=== PATIENT | female | born 1985 | race Caucasian/White ===

== ENCOUNTER 2017-01-12 09:09 | Emergency (ER) | payer OTHER ==
[~2017-01-12] VITALS: Ht 160 cm; Wt 80.0 kg
[~2017-01-12 09:09] MED LIST: IBUP-232 PO; PROZ20CA11 PO; Z.0.BCPILL PO
[2017-01-12 09:11] VITALS: BP 143/80; PULSE 98; RESP 20; TEMP 97.8; O2SAT 99
[2017-01-12] MEDS ORDERED: PROZ20CA11 PO (09:16)
[2017-01-12 09:22] VITALS: BP 135/87; PULSE 85; RESP 16; O2SAT 99
[2017-01-12] MEDS ORDERED: PREN1TAB63 PO (09:25)
[2017-01-12] MEDS ORDERED: MORPHINE SULFATE 4 MG/ML INJ IV PUSH ONE (10:00)
[2017-01-12] MEDS ORDERED: ONDANSETRON HCL 4 MG/2 ML VIAL IV PUSH ONE (10:00)
[2017-01-12] MEDS ORDERED: SODIUM CHLOR 0.9% 1000 ML INJ 1,000 ML IV ONE (10:00)
--- NOTE | 2017-01-12 10:30 | PD ---
HPI Chief Complaint: GI Complaint Time Seen by Provider: 09:47 Travel History International Travel<30 days: No Contact w/Intl Traveler<30days: No Traveled to known affect area: No History of Present Illness HPI This is a 31-year-old female who is 14 weeks who presents the emergency department with 1 day of vomiting and diarrhea. She says she woke up this morning and she started to have forceful vomiting, having vomited 7 or 8 times associated with loose stools. She says she had about 4 episodes of diarrhea. She also reports severe abdominal cramping, all over her abdomen, feeling like contractions, with no associated fever or chills. She denies any vaginal bleeding or vaginal discharge. She associated Palestinian muffin this morning and it was the same pack of Palestinian muffin she ate from yesterday. She has had a confirmatory ultrasound and her . PFSH Past Medical History Bipolar Disorder: Yes Anxiety: Yes Depression: Yes Diminished Hearing: No Psychiatric: Yes (PTSD) Immunizations Current: Yes Influenza Vaccination: No ?: LMP: SEPTEMBER 2016 : 1 Para: 1 Past Surgical History Tonsillectomy: Yes (ADENOIDS AND UVULA) Social History Alcohol Use: Yes (SOC) Tobacco Use: No (QUIT) Substance Use: No Allergies-Medications (Allergen,Severity, Reaction): Coded Allergies: *MDRO Multi-Drug Resistant Organism (Unverified Adverse Reaction, Unknown , 01/12/17) MRSA (lip wound) - 06/2014 Reported Meds & Prescriptions Reported Meds & Active Scripts Active Reported Vitamins 0.8 mg ( Multivit-Min W/Fe-FA) 1 Tab Tab 1 Tab PO DAILY Prozac (Fluoxetine HCl) 20 Mg Cap 20 Mg PO DAILY Review of Systems Except as stated in HPI: all other systems reviewed are Neg Physical Exam Narrative GENERAL:Well appearing, no acute distress SKIN: Focused skin assessment warm and dry. HEAD: Atraumatic. Normocephalic. EYES: Pupils equal and round. No injection or drainage. ENT: Moist mucous membranes NECK: Trachea midline. CARDIOVASCULAR: Regular rate and rhythm. No murmur appreciated. RESPIRATORY: Clear to auscultation. Breath sounds equal bilaterally. GASTROINTESTINAL: Abdomen soft, diffusely mildly tender to palpation. MUSCULOSKELETAL: No obvious deformities. NEUROLOGICAL: Awake and alert. No obvious cranial nerve deficits. Moving all extremities. PSYCHIATRIC: Hyperventilating, anxious and tearful Data Data Last Documented VS Vital Signs Date Time Temp Pulse Resp B/P Pulse Ox O2 Delivery O2 Flow Rate FiO2 01/12/17 10:49 74 16 126/75 100 Room Air 01/12/17 09:11 97.8 Orders Ed Poc Ultrasound (01/12/17 ) Complete Blood Count With Diff (01/12/17 09:53) Comprehensive Metabolic Panel (01/12/17 09:53) ^ Insert Iv (01/12/17 09:53) Sodium Chlor 0.9% 1000 Ml Inj (Ns 1000 M (01/12/17 10:00) Morphine Inj (Morphine Inj) (01/12/17 10:00) Ondansetron Inj (Zofran Inj) (01/12/17 10:00) Labs Laboratory Tests Test 01/12/17 10:20 White Blood Count 9.9 TH/MM3 Red Blood Count 4.25 MIL/MM3 Hemoglobin 13.4 GM/DL Hematocrit 38.7 % Mean Corpuscular Volume 90.9 FL Mean Corpuscular Hemoglobin 31.5 PG Mean Corpuscular Hemoglobin 34.7 % Concent Red Cell Distribution Width 12.8 % Platelet Count 282 TH/MM3 Mean Platelet Volume 7.8 FL Neutrophils (%) (Auto) 78.9 % Lymphocytes (%) (Auto) 15.8 % Monocytes (%) (Auto) 4.6 % Eosinophils (%) (Auto) 0.5 % Basophils (%) (Auto) 0.2 % Neutrophils # (Auto) 7.8 TH/MM3 Lymphocytes # (Auto) 1.6 TH/MM3 Monocytes # (Auto) 0.5 TH/MM3 Eosinophils # (Auto) 0.0 TH/MM3 Basophils # (Auto) 0.0 TH/MM3 CBC Comment DIFF FINAL Differential Comment Sodium Level 137 MEQ/L Potassium Level 3.7 MEQ/L Chloride Level 104 MEQ/L Carbon Dioxide Level 21.5 MEQ/L Anion Gap 12 MEQ/L Blood Urea Nitrogen 6 MG/DL Creatinine 0.51 MG/DL Estimat Glomerular Filtration 143 ML/MIN Rate Random Glucose 87 MG/DL Calcium Level 9.5 MG/DL Total Bilirubin 0.3 MG/DL Aspartate Amino Transf 15 U/L (AST/SGOT) Alanine Aminotransferase 25 U/L (ALT/SGPT) Alkaline Phosphatase 61 U/L Total Protein 7.6 GM/DL Albumin 3.7 GM/DL MDM Medical Decision Making Medical Screen Exam Complete: Yes Emergency Medical Condition: Yes Interpretation(s) Afebrile, tachycardic, hypertensive No leukocytosis Electrolytes are reassuring Differential Diagnosis Gastroenteritis, threatened miscarriage, appendicitis, colitis Narrative Course This is a 31-year-old female who presents the emergency department vomiting, diarrhea and abdominal pain in the setting of early . She appears to be very anxious as well. An IV was established and labs were obtained which were reassuring. A [id number] ultrasound was performed which demonstrates an active fetus. Patient feels much better after IV fluids, Zofran and pain control. She'll be discharged home and I suspect she has food poisoning. Procedures Procedure Narrative poc us: active fetus, difficult to capture heart rate due to mobility Diagnosis Primary Impression: Gastroenteritis Patient Instructions: General Instructions Additional Instructions: If you develop lightheadedness, dizziness, persistent vomiting, inability to eat , or severe abdominal pain return to the emergency department. Followup with your primary care physician in 2-3 days if your symptoms have not resolved. Wash your hands aggressively after using the restroom as to not spread your illness to others. Do not return to work until your symptoms have resolved. Take Zofran as needed for nausea. Med/Other Pt SpecificInfo: Prescription(s) given Scripts Ondansetron Odt (Zofran Odt)4 Mg Tab4 Mg SL Q6HR PRN (Nausea/Vomiting) #6 TAB Prov:Sophia Nolasco MD 01/12/17 Disposition: 01 DISCHARGE HOME Condition: Stable Sophia Nolasco MD Jan 12, 2017 10:30
[2017-01-12 10:41] LABS: AUTOMATED NEUTROPHIL # 7.8 TH/MM3 (1.8-7.7); BASOPHIL % 0.2 % (0.0-2.0); EOSINOPHIL % 0.5 % (0.0-4.0); HEMATOCRIT 38.7 % (35.0-46.0); HEMO FLAGS DIFF FINAL; LYMPH % 15.8 % (9.0-44.0); LYMPHOCYTE # 1.6 TH/MM3 (1.0-4.8); MEAN CELL VOLUME 90.9 FL (80.0-100.0); MEAN CORPUSCULAR HEMOGLOBIN 31.5 PG (27.0-34.0); MEAN CORPUSCULAR HGB CONC 34.7 % (32.0-36.0); MONO % 4.6 % (0.0-8.0); NEUT % 78.9 % (16.0-70.0); PLATELET COUNT 282 TH/MM3 (150-450); RED BLOOD COUNT 4.25 MIL/MM3 (4.00-5.30); RED CELL DISTRIBUTION WIDTH 12.8 % (11.6-17.2); WHITE BLOOD COUNT 9.9 TH/MM3 (4.0-11.0)
[2017-01-12 10:49] VITALS: BP 126/75; PULSE 74; RESP 16; O2SAT 100
[2017-01-12 10:54] LABS: ALT (GPT) 25 U/L (10-53); ANION GAP 12 MEQ/L (5-15); AST (GOT) 15 U/L (15-37); BICARBONATE 21.5 MEQ/L (21.0-32.0); BLOOD UREA NITROGEN 6 MG/DL (7-18); CHLORIDE 104 MEQ/L (98-107); GLOMERULAR FILTRATION RATE 143 ML/MIN (>89); POTASSIUM 3.7 MEQ/L (3.5-5.1); SODIUM (NA) 137 MEQ/L (136-145)
[2017-01-12 10:57] LABS: ALKALINE PHOSPHATASE 61 U/L (45-117); TOTAL BILIRUBIN ADULT 0.3 MG/DL (0.2-1.0)
[2017-01-12] MEDS ORDERED: ZOFR4TAB3 SL (11:10)
== END 2017-01-12 11:34 | disposition home or self-care (01) ==
LOC: NEPD 09:09
DX: O99.612 Diseases of the digestive system complicating pregnancy, second trimester (principal); K52.9 Noninfective gastroenteritis and colitis, unspecified; Z86.59 Personal history of other mental and behavioral disorders; Z3A.14 14 weeks gestation of pregnancy
CPT/HCPCS: 80053; 85025; 96361; 96374; 96375; 99285; J2270; J2405; J7030

== ENCOUNTER 2017-05-24 11:36 | Emergency (ER) | payer OTHER ==
[~2017-05-24 11:36] MED LIST changes: -IBUP-232 PO; +PREN1TAB63 PO; -Z.0.BCPILL PO; +ZOFR4TAB3 SL
[2017-05-24] MEDS ORDERED: TERBUTALINE INJ 1 MG/ML AMP SQ ONE (13:30)
--- NOTE | 2017-05-24 13:35 | PD ---
HPI Chief Complaint Patient complains of pain in her ribs on both sides and a area in the right upper chest that is sharp pain mainly when she breathes but is be sharp pain there. All these pains began about 8:00 this morning, she denies contractions are she did note some decreased movement Date Seen: May 24, 2017 Time Seen: 13:20 Travel History International Travel<30 Days: No Contact w/Intl Traveler<30Days: No Known Affected Area: No History of Present Illness HPI Patient is 32-year-old white female at 33 weeks presents complaining of chest pains rib pain began about 8:00 this morning and in the right upper chest at the pain again is worse with breathing she has 0 2 sat 100%. She denies any coughing up of blood denies any vaginal bleeding or leakage of fluid, baby is moving some but not as much as she normally feels now, she is teresa about every 6-8 minutes at this time and the heart rate tracing is normal limits the not quite reactive yet Weeks Gestation: 33 Para: 1 : 2 History Obstetric History Obstetric History Delivery the 38 weeks vaginal in the past Social History Alcohol Use: No Tobacco Use: No Substance Abuse: No Allergies-Medications (Allergen,Severity, Reaction): Coded Allergies: *MDRO Multi-Drug Resistant Organism (Unverified Adverse Reaction, Unknown , 01/12/17) MRSA (lip wound) - 06/2014 Home Meds Active Scripts Ondansetron Odt (Zofran Odt) 4 Mg Tab, 4 MG SL Q6HR Y for Nausea/Vomiting, #6 TAB Prov:Sophia Nolasco MD 01/12/17 Reported Medications Multivit-Min W/Fe-FA ( Vitamins 0.8 mg) 1 Tab Tab, 1 TAB PO DAILY 01/12/17 Fluoxetine (Prozac) 20 Mg Cap, 20 MG PO DAILY, #30 CAP 0 Refills 01/12/17 Review of Systems General / Constitutional: No: Fever, Weight Gain, Chills, Other Eyes: No: Diploplia, Blurred Vision, Visual changes, Pain, Photophobia HENT: No: Headaches, Vertigo, Lightheadedness Cardiovascular: Chest Pain or Discomfort, No: Irregular Rhythm, Palpitations, Tachycardia, Syncope, Varicosities, Edema, Cyanosis Respiratory: No: Cough, Short of Breath, Other Gastrointestinal: No: Nausea, Vomiting, Diarrhea Genitourinary: No: Decreased Urinary Output, Oliguria Musculoskeletal: No: Limited ROM, Weakness, Cramping, Edema, Pain Skin: No Rash, No Itching, No Dryness, No Lumps, No Change in Pigmentation, No Change in Nails, No Alopecia, No Lesions Neurologic: No: Weakness, Dizziness, Syncope, Focal Abnormalities, Coordination Problem, Headache, Slurred Speech, Seizures Psychiatric: No: Depression, Suicidal Ideations, Homicidal Ideation Endocrine: No: Heat Intolerance, Cold Intolerance, Polydipsia, Polyuria, Other Physical Exam Narrative GENERAL: Well-nourished, well-developed patient. SKIN: Warm and dry. HEAD: Normocephalic and atraumatic. EYES: No scleral icterus. No injection or drainage. ENT: No nasal drainage noted. Mucous membranes pink. Airway patent. NECK: Supple, trachea midline. No JVD. CARDIOVASCULAR: Regular rate and rhythm without murmurs, gallops, or rubs. RESPIRATORY: Breath sounds equal bilaterally. No accessory muscle use. BREASTS: Bilateral exam showed no masses , no retractions, no nipple discharge. ABDOMEN/GI: Abdomen soft, non-tender, bowel sounds present, no rebound, no guarding Gravid to [-33] weeks size Fundal Height: [33-] GENITOURINARY: External Genitalia: intact and normal in appearance BUS glands: [-] Cervix: [post-] Dilatation: [Fingertip-] Effacement: [-thick] Station: [high-] Membranes: [intact ] Uterine Contractions: [-q 6-8 min] FHT's: Category: [-1] Baseline: [133-] Reactive: [-] Variability: [-mod] Decels: [-0] EXTREMITIES: No cyanosis or edema. BACK: Nontender without obvious deformity. No CVA tenderness. NEUROLOGICAL: Awake and alert. Motor and sensory grossly within normal limits. Five out of 5 muscle strength in all muscle groups. Normal speech. Data Data Orders Orders Terbutaline Inj (Brethine Inj) (05/24/17 13:30) Lung Scan - Perfusion (05/24/17 ) Labs the patient's chest pain with breathing she was sent for VQ scan which was negative for pulmonary embolus Urinalysis was negative MDM Interpretation(s) Patient is 32-year-old white female at 33 weeks patient of the [facility] clinic who presents complaining of pain in her ribs on both sides today on the lower edge of the ribs as well as upper right chest pain it's deep and sharp inside mainly when she breathes. She also complains of decreased movement patient had a VQ scan which was negative for pulmonary embolus, she was teresa she a backup on OB ED and so she was given a liter fluid for hydration another dose of subcutaneous terbutaline and 50 g of fentanyl IV these measures decrease her contraction activity to essentially 0 after liter fluid was and she was ready for discharge Plan Plan to discharge patient home to increase bedrest, by mouth fluids for hydration, Tylenol use liberally for abdominal pain and rib pain and other issues, she is to use hot bath for heating pad for symptomatic relief and follow -up with her OB provider Diagnosis Diagnosis: Primary Impression: Decreased movement during in third trimester, antepartum Additional Impressions: Chest pain on breathing Rib pain Disposition: 01 DISCHARGE HOME Condition: Stable Dagoberto Jang II, MD May 24, 2017 13:35
[2017-05-24 14:03] LABS: BLOOD, URINE NEG (NEG); COMMENT (UR) CULT NOT INDICATED; CULTURE IF INDICATED CULT NOT INDICATED; GLUCOSE,URINE NEG (NEG); KETONE, URINE NEG (NEG); MUCUS URINE FEW /lpf (OCC); NITRITE,URINE NEG (NEG); SQUAMOUS EPITHELIAL CELL URINE 2 /hpf (0-5); URINE COLOR LIGHT-YELLOW (YELLW/STRAW)
--- NOTE | 2017-05-24 15:25 | RADRPT ---
EXAM DATE/TIME: 05/24/2017 14:51 [facility] COMPARISON: No previous studies available for comparison. INDICATIONS : 33 weeks . Mid chest pain with shortness of breath for one day. DOSE: 1.1 mCi Tc99m Labeled MAA IV MEDICAL HISTORY : . SURGICAL HISTORY : Tonsillectomy. ENCOUNTER: Initial ACUITY: 1 day PAIN SCALE: 4/10 LOCATION: Bilateral chest TECHNIQUE: The patient was injected with MAA, and eight-view perfusion scan was performed. FINDINGS: PERFUSION: There is a homogenous pattern of radiotracer uptake throughout both lungs. CONCLUSION: Normal perfusion scan. Theo Guerrero MD on May 24, 2017 at 15:22 Board Certified Radiologist. This report was verified electronically.
[2017-05-24] MEDS ORDERED: LACTATED RINGER'S 1000 ML INJ 1,000 ML IV SCH (16:00)
[2017-05-24] MEDS ORDERED: TERBUTALINE INJ 1 MG/ML AMP SQ PRN (16:00)
[2017-05-26 12:31] LABS: BATH SALTS (MDPV) UR NEG (NEG); ECSTASY (MDMA) UR NEG (NEG); HEROIN (6-ACETYLMORPHINE) UR NEG (NEG); K2 SPICE UR NEG (NEG); OBGABAPENTIN UR NEG (NEG); OBHYDROMORPHONE U NEG (NEG); OBMETHADONE UR NEG (NEG); PHENCYCLIDINE URINE NEG (NEG)
== END 2017-05-24 16:59 | disposition home or self-care (01) ==
LOC: HOBED 11:36
DX: O36.8130 Decreased fetal movements, third trimester, not applicable or unspecified (principal); O26.893 Other specified pregnancy related conditions, third trimester; R07.81 Pleurodynia; R06.02 Shortness of breath; Z3A.33 33 weeks gestation of pregnancy; Z79.899 Other long term (current) drug therapy
CPT/HCPCS: 59025; 78580; 80307; 81001; 96361; 96372; 96374; 99284; A9540; G0481; J3010; J3105; J7120

== ENCOUNTER 2017-06-25 19:19 | Inpatient (IN) | payer OTHER ==
[2017-06-25] VITALS (41 sets, daily range): BP systolic 106–144; BP diastolic 53–86; PULSE 82–111; RESP 18–20; TEMP 98.4; O2SAT 100
[~2017-06-25] VITALS: Ht 160 cm; Wt 91.0 kg
--- NOTE | 2017-06-25 20:36 | PD ---
HPI Chief Complaint 38 weeks and 2 days Leaking fluid 2 days Low abdominal pain 1 day Travel History International Travel<30 Days: No Contact w/Intl Traveler<30Days: No Known Affected Area: No History of Present Illness HPI Patient is a 32 yo at 38 weeks and 2 days. EDC is 07-07-2017, Patient receives her care at [facility]. Patient states she noticed vaginal leaking last night. This morning she noticed intermittent low back pain . She reports active movements No vaginal bleeding Denies vaginal bleeding. No fevers. Weeks Gestation: 38 Para: 1 : 2 History Past Medical History Narrative Medical Depresssion/Anxiety on Prozac. Obstetric History Obstetric History Prior h/o HSV, on prophylactic Valtrex. Past Surgical History Surgical History: No Previous Surgery Family History Family History: Negative Social History Alcohol Use: No Tobacco Use: No Substance Abuse: No Allergies-Medications (Allergen,Severity, Reaction): Coded Allergies: *MDRO Multi-Drug Resistant Organism (Unverified Adverse Reaction, Unknown , 01/12/17) MRSA (lip wound) - 06/2014 Home Meds Active Scripts Ondansetron Odt (Zofran Odt) 4 Mg Tab, 4 MG SL Q6HR Y for Nausea/Vomiting, #6 TAB Prov:Sophia Nolasco MD 01/12/17 Reported Medications Multivit-Min W/Fe-FA ( Vitamins 0.8 mg) 1 Tab Tab, 1 TAB PO DAILY 01/12/17 Fluoxetine (Prozac) 20 Mg Cap, 20 MG PO DAILY, #30 CAP 0 Refills 01/12/17 Review of Systems Except as stated in HPI: all other systems reviewed are Neg Physical Exam Narrative GENERAL: Well-nourished, well-developed patient. SKIN: Warm and dry. HEAD: Normocephalic and atraumatic. EYES: No scleral icterus. No injection or drainage. ENT: No nasal drainage noted. Mucous membranes pink. Airway patent. NECK: Supple, trachea midline. No JVD. CARDIOVASCULAR: Regular rate and rhythm without murmurs, gallops, or rubs. RESPIRATORY: Breath sounds equal bilaterally. No accessory muscle use. BREASTS: Bilateral exam showed no masses , no retractions, no nipple discharge. ABDOMEN/GI: Abdomen soft, non-tender, bowel sounds present, no rebound, no guarding Gravid to [38] weeks size Fundal Height: [38cm] GENITOURINARY: External Genitalia: intact and normal in appearance BUS glands: [wnl] Cervix: [soft] Dilatation: [4cm] Effacement: [80%] Station: [-2] Presentation: [vertex] Membranes: [intact, bulging bag.] Uterine Contractions: [1-4 minutes] FHT's: Category: [1] Baseline: [130s] Reactive: [-] Variability: [moderate] Decels: [none] EXTREMITIES: No cyanosis or edema. BACK: Nontender without obvious deformity. No CVA tenderness. NEUROLOGICAL: Awake and alert. Motor and sensory grossly within normal limits. Five out of 5 muscle strength in all muscle groups. Normal speech. Data Data Vital Signs Reviewed: Yes Group B Strep: Negative MDM Plan Patient is a 32 yo at 38 weeks and 2 days here with c/o low abdominal pain and leaking vaginally. Amniosure is POSITIVE. She is 4cm dilated /80% effaced with bulging membranes. GBS is negative. Discussed with Dr Luna. We plan admission to L&D. Diagnosis Diagnosis: Primary Impression: 38 weeks gestation of Additional Impressions: Ruptured membranes, prolonged Admitted to labor and delivery Clarence Mendosa MD Jun 25, 2017 20:36
[2017-06-25] MEDS ORDERED: LACTATED RINGER'S 1000 ML INJ 1,000 ML IV PRN (20:37)
[2017-06-25] MEDS ORDERED: LIDOCAINE HCL 1% 50 ML VIAL I-DERMAL PRN (20:45)
[2017-06-25] MEDS ORDERED: SODIUM CHLORID 0.9% 500 ML INJ 500 ML IV PRN (20:45)
[2017-06-25] MEDS ORDERED: MINERAL OIL 10 ML VIAL TOPICAL PRN (20:45)
[2017-06-25] MEDS ORDERED: OXYTOCIN 30 UNITS-500ML PREMIX 500 ML IV ONE (20:45)
[2017-06-25] MEDS: LACTATED RINGER'S 1000 ML INJ 1,000 ML IV SCH ×4 (20:45→23:42)
[2017-06-25] MEDS ORDERED: valACYclovir HCL 500 MG TAB PO ONE (20:45)
[2017-06-25] MEDS ORDERED: LIDOCAINE HCL 1% 50 ML VIAL INFIL PRN (20:45)
[2017-06-25] MEDS ORDERED: CITRIC ACID-SODIUM CITRATE LIQ 30 ML UDC PO SCH (20:45)
--- NOTE | 2017-06-25 20:52 | HHI.HP ---
HPI Chief Complaint 38 weeks and 2 days Prolonged ruptured membranes Travel History International Travel<30 Days: No Contact w/Intl Traveler<30Days: No Known Affected Area: No History of Present Illness HPI Patient is a 32 yo at 38 weeks and 2 days. EDC is 07-07-2017, Patient receives her care at [facility]. Patient states she noticed vaginal leaking last night. Patient first noticed at 17:00 06-24-2017 This morning she noticed intermittent low back pain . She reports active movements No vaginal bleeding Denies vaginal bleeding. No fevers. Amniosure is POSTIVE.Cervix is 4cm dilated/80% /-2 station. She is teresa 1-4 minutes. Pt has h/o HSV and is on Valtrex for prophylaxis. We did not observe any genital lesions. Pt has a remote h/o MRSA, and we have ordered nasal swab. She takes Prozac 20mg daily. Weeks Gestation: 38 Para: 1 : 2 History Past Medical History Narrative Medical h/o HSV Depression/Anxiety history of MRSA Obstetric History Obstetric History previous uncomplicated term at 38 weeks Family History Family History: Negative Social History Alcohol Use: No Tobacco Use: No Substance Abuse: No Allergies-Medications (Allergen,Severity, Reaction): Coded Allergies: *MDRO Multi-Drug Resistant Organism (Unverified Adverse Reaction, Unknown , 01/12/17) MRSA (lip wound) - 06/2014 Home Meds Active Scripts Ondansetron Odt (Zofran Odt) 4 Mg Tab, 4 MG SL Q6HR Y for Nausea/Vomiting, #6 TAB Prov:Sophia Nolasco MD 01/12/17 Reported Medications Multivit-Min W/Fe-FA ( Vitamins 0.8 mg) 1 Tab Tab, 1 TAB PO DAILY 01/12/17 Fluoxetine (Prozac) 20 Mg Cap, 20 MG PO DAILY, #30 CAP 0 Refills 01/12/17 Review of Systems Except as stated in HPI: all other systems reviewed are Neg Physical Exam Narrative GENERAL: Well-nourished, well-developed patient. SKIN: Warm and dry. HEAD: Normocephalic and atraumatic. EYES: No scleral icterus. No injection or drainage. ENT: No nasal drainage noted. Mucous membranes pink. Airway patent. NECK: Supple, trachea midline. No JVD. CARDIOVASCULAR: Regular rate and rhythm without murmurs, gallops, or rubs. RESPIRATORY: Breath sounds equal bilaterally. No accessory muscle use. BREASTS: Bilateral exam showed no masses , no retractions, no nipple discharge. ABDOMEN/GI: Abdomen soft, non-tender, bowel sounds present, no rebound, no guarding Gravid to [38] weeks size Fundal Height: [38] GENITOURINARY: External Genitalia: intact and normal in appearance. No genital lesions noted. BUS glands: [wnl Dilatation: [4cm] Effacement: [80%] Station: [-2] Presentation: [vertex] Membranes: [ ruptured] but with bulging membranes Uterine Contractions: [1-4 minutes] FHT's: Category: [1] Baseline: [130s] Reactive: [-] Variability: [moderate] Decels: [none] EXTREMITIES: No cyanosis or edema. BACK: Nontender without obvious deformity. No CVA tenderness. NEUROLOGICAL: Awake and alert. Motor and sensory grossly within normal limits. Five out of 5 muscle strength in all muscle groups. Normal speech. Caprini VTE Risk Assessment Caprini VTE Risk Assessment: No/Low Risk (score <= 1) Caprini Risk Assessment Model Point Value = 1 Point Value = 2 Point Value = 3 Point Value = 5 Age 41-60 Minor surgery BMI > 25 kg/m2 Swollen legs Varicose veins or History of unexplained or recurrent spontaneous Oral contraceptives or hormone replacement Sepsis (< 1 month) Serious lung disease, including pneumonia (< 1 month) Abnormal pulmonary function Acute myocardial infarction Congestive heart failure (< 1 month) History of inflammatory bowel disease Medical patient at bed rest Age 61-74 Arthroscopic surgery Major open surgery (> 45 min) Laparoscopic surgery (> 45 min) Malignancy Confined to bed (> 72 hours) Immobilizing plaster cast Central venous access Age >= 75 History of VTE Family history of VTE Factor V Leiden Prothrombin [id number] Lupus anticoagulant Anticardiolipin antibodies Elevated serum homocysteine Heparin-induced thrombocytopenia Other congenital or acquired thrombophilia Stroke (< 1 month) Elective arthroplasty Hip, pelvis, or leg fracture Acute spinal cord injury (< 1 month) Prophylaxis Regimen Total Risk Factor Score Risk Level Prophylaxis Regimen 0-1 Low Early ambulation 2 Moderate Order ONE of the following: *Sequential Compression Device (SCD) *Heparin 5000 units SQ BID 3-4 Higher Order ONE of the following medications: *Heparin 5000 units SQ TID *Enoxaparin/Lovenox 40 mg SQ daily (WT < 150 kg, CrCl > 30 mL/min) *Enoxaparin/Lovenox 30 mg SQ daily (WT < 150 kg, CrCl > 10-29 mL/min) *Enoxaparin/Lovenox 30 mg SQ BID (WT < 150 kg, CrCl > 30 mL/min) AND/OR *Sequential Compression Device (SCD) 5 or more Highest Order ONE of the following medications: *Heparin 5000 units SQ TID (Preferred with Epidurals) *Enoxaparin/Lovenox 40 mg SQ daily (WT < 150 kg, CrCl > 30 mL/min) *Enoxaparin/Lovenox 30 mg SQ daily (WT < 150 kg, CrCl > 10-29 mL/min) *Enoxaparin/Lovenox 30 mg SQ BID (WT < 150 kg, CrCl > 30 mL/min) AND *Sequential Compression Device (SCD) Data Data Vital Signs Reviewed: Yes Orders Orders Ob (2e) Additional Admit Info (06/25/17 20:29) Vital Signs (Adult) .ON ADMISSION (06/25/17 20:36) ^ Labor Status (06/25/17 20:36) ^ Non Stress Test (06/25/17 20:36) Pamg-1 Test .ONCE (06/25/17 20:36) Admit To Inpatient (06/25/17 ) Code Status (06/25/17 20:37) Vital Signs (Adult) .Per protocol (06/25/17 20:37) Activity Oob Ad Danielle (06/25/17 20:37) Heart (06/25/17 20:37) Amnioinfusion (06/25/17 20:37) Urinary Catheter Management .ONCE (06/25/17 20:37) Diet Liquid (06/26/17 Breakfast) Lactated Ringer's 1000 Ml Inj (Lr 1000 M (06/25/17 20:37) Lactated Ringer's 1000 Ml Inj (Lr 1000 M (06/25/17 20:37) Sodium Chlorid 0.9% 500 Ml Inj (Ns 500 M (06/25/17 20:45) Sodium Chlor 0.9% 1000 Ml Inj (Ns 1000 M (06/25/17 20:57) Lidocaine 1% Inj (50 Ml) (Xylocaine 1% I (06/25/17 20:45) Citric Acid-Sodium Citrate Liq (Bicitra (06/25/17 20:45) Fentanyl Inj (Fentanyl Inj) (06/25/17 20:45) Fentanyl Inj (Fentanyl Inj) (06/25/17 20:45) Complete Blood Count With Diff (06/25/17 20:37) Hold Clot (06/25/17 20:37) Abo/Rh Blood Type (06/25/17 20:37) Urinalysis - C+S If Indicated (06/25/17 20:37) Drug Screen, Random Urine (06/25/17 20:37) Resp Oxygen Non Rebreathe Mask (06/25/17 ) ^ Epidural / Intrathecal Infus (06/25/17 20:37) Oxytocin 30 Units-500ml Premix (Pitocin (06/25/17 20:45) Lidocaine 1% Inj (50 Ml) (Xylocaine 1% I (06/25/17 20:45) Light Mineral Oil (Muri-Lube Oil) (06/25/17 20:45) Inpatient Certification (06/25/17 ) Specimen To Be Collected PRN (06/25/17 20:37) Specimen To Be Collected PRN (06/25/17 20:37) Nasal Mrsa/Sa Pcr (06/25/17 20:37) Valacyclovir (Valtrex) (06/25/17 20:45) Fluoxetine (Prozac) (06/26/17 09:00) Group B Strep: Negative Assessment/Plan Assessment and Plan 32 yo at 38 weeks and 2 days with SROM. AMNIOSURE positive. GBS negative. H/o HSV on Valtrex started 2 days ago. No genital lesions noted on inspection. Admitted to L&D , after discussion with Dr Luna. Clarence Mendosa MD Jun 25, 2017 20:52
[2017-06-25] MEDS ORDERED: SODIUM CHLOR 0.9% 1000 ML INJ 1,000 ML IV PRN (20:57)
[2017-06-25 21:16] LABS: AUTOMATED NEUTROPHIL # 7.7 TH/MM3 (1.8-7.7); BASOPHIL % 0.3 % (0.0-2.0); EOSINOPHIL # 0.1 TH/MM3 (0-0.4); EOSINOPHIL % 0.7 % (0.0-4.0); HEMATOCRIT 32.3 % (35.0-46.0); HEMOGLOBIN 10.4 GM/DL (11.6-15.3); LYMPH % 19.3 % (9.0-44.0); LYMPHOCYTE # 2.1 TH/MM3 (1.0-4.8); MEAN CELL VOLUME 82.3 FL (80.0-100.0); MEAN CORPUSCULAR HEMOGLOBIN 26.6 PG (27.0-34.0); MEAN CORPUSCULAR HGB CONC 32.3 % (32.0-36.0); MEAN PLATELET VOLUME 8.6 FL (7.0-11.0); MONO % 7.5 % (0.0-8.0); MONOCYTE # 0.8 TH/MM3 (0-0.9); NEUT % 72.2 % (16.0-70.0); PLATELET COUNT 217 TH/MM3 (150-450); RED BLOOD COUNT 3.92 MIL/MM3 (4.00-5.30); RED CELL DISTRIBUTION WIDTH 15.2 % (11.6-17.2); WHITE BLOOD COUNT 10.7 TH/MM3 (4.0-11.0)
[2017-06-25] MEDS ORDERED: ZANT150T2 PO (21:18)
[2017-06-25] MEDS ORDERED: VALT500T PO (21:18)
[2017-06-25] MEDS ORDERED: PROZ20CA11 PO (21:18)
[2017-06-25] MEDS ORDERED: PRENTAB7 (21:18)
[2017-06-25 21:26] LABS: AMORPHOUS SEDIMENT, URINE RARE; BACTERIA, URINE FEW /hpf; BILIRUBIN, URINE NEG (NEG); BLOOD, URINE NEG (NEG); GLUCOSE,URINE NEG (NEG); KETONE, URINE NEG (NEG); MUCUS URINE FEW /lpf (OCC); NITRITE,URINE NEG (NEG); PH, URINE 6.5 (5.0-8.5); SQUAMOUS EPITHELIAL CELL URINE 21 /hpf (0-5); URINE COLOR YELLOW (YELLW/STRAW); URINE LEUKOCYTE ESTERASE LARGE (NEG)
[2017-06-25] MEDS ORDERED: fentaNYL 2MCG-BUPIV 0.125% INJ 100 ML ONE (21:50)
[2017-06-25] MEDS ORDERED: BUPIVACAINE HCL PF 0.25% 10 ML VIAL ONE (22:16)
[2017-06-25] MEDS ORDERED: ePHEDrine/NS 25 MG/5 ML SYRINGE ONE ×2 (22:17→22:46)
[2017-06-25] MEDS ORDERED: fentaNYL 2MCG-BUPIV 0.125% 100 ML EPIDURAL SCH (23:30)
[2017-06-25] MEDS ORDERED: NO SYSTEM NARCOTICS PRN (23:30)
[2017-06-25] MEDS ORDERED: ePHEDrine/NS 25 MG/5 ML SYRINGE IV PUSH PRN (23:30)
[2017-06-25] MEDS ORDERED: DO NOT ADMINISTER ANTICOAGULANTS PRN (23:30)
[2017-06-26] VITALS (152 sets, daily range): BP systolic 110–141; BP diastolic 56–91; PULSE 89–150; RESP 18–20; TEMP 97.5–98.2; O2SAT 98–100
[2017-06-26] MEDS ORDERED: OXYTOCIN 30 UNITS-500ML PREMIX 500 ML IV SCH ×2 (08:45→12:00)
--- NOTE | 2017-06-26 08:46 | PD.LABORPN ---
Subjective Subjective comfortable with epidural unclear if she has had a high leak for 2 days before being seen in office. Objective Vital Signs Vital Signs Date Time Temp Pulse Resp B/P (MAP) Pulse Ox O2 Delivery O2 Flow Rate FiO2 06/26/17 08:35 99 06/26/17 08:30 96 06/26/17 08:30 18 06/26/17 08:25 93 06/26/17 08:20 99 06/26/17 08:16 94 122/80 (94) 06/26/17 08:15 94 06/26/17 08:10 90 06/26/17 08:05 94 06/26/17 08:01 93 132/83 (99) 06/26/17 08:00 94 06/26/17 07:55 89 06/26/17 07:50 92 06/26/17 07:46 99 131/76 (94) 06/26/17 07:45 90 06/26/17 07:40 90 06/26/17 07:35 94 06/26/17 07:31 92 134/80 (98) 06/26/17 07:30 96 06/26/17 07:25 94 06/26/17 07:20 94 06/26/17 07:16 96 137/82 (100) 06/26/17 07:15 93 06/26/17 07:11 98.2 18 06/26/17 07:10 98 06/26/17 07:05 106 06/26/17 07:00 95 06/26/17 07:00 98 06/26/17 07:00 130/77 (94) 06/26/17 06:55 93 06/26/17 06:50 94 06/26/17 06:45 128/80 (96) 06/26/17 06:40 94 06/26/17 06:30 18 06/26/17 06:30 97 130/84 (99) 06/26/17 06:25 100 06/26/17 06:16 129/79 (96) 06/26/17 06:10 101 06/26/17 06:01 95 130/81 (97) 06/26/17 06:00 98.0 06/26/17 05:59 18 06/26/17 05:55 95 06/26/17 05:46 128/91 (103) 06/26/17 05:40 96 06/26/17 05:30 18 06/26/17 05:30 141/89 (106) 06/26/17 05:25 92 06/26/17 05:15 131/79 (96) 06/26/17 05:10 97 06/26/17 05:05 92 06/26/17 05:00 18 06/26/17 05:00 128/81 (97) 06/26/17 04:55 95 06/26/17 04:45 128/76 (93) 06/26/17 04:40 93 06/26/17 04:30 136/81 (99) 06/26/17 04:30 18 06/26/17 04:25 95 06/26/17 04:16 124/79 (94) 06/26/17 04:10 95 06/26/17 04:01 135/80 (98) 06/26/17 03:59 18 06/26/17 03:55 92 06/26/17 03:45 90 138/78 (98) 06/26/17 03:40 93 06/26/17 03:30 18 06/26/17 03:30 135/84 (101) 06/26/17 03:25 93 06/26/17 03:15 122/78 (93) 06/26/17 03:10 91 06/26/17 03:05 95 06/26/17 03:01 93 127/77 (94) 06/26/17 03:00 18 06/26/17 02:55 96 06/26/17 02:45 123/77 (92) 06/26/17 02:40 94 06/26/17 02:35 94 06/26/17 02:30 128/76 (93) 06/26/17 02:25 97 06/26/17 02:16 18 06/26/17 02:15 105 124/75 (91) 06/26/17 02:10 95 06/26/17 02:00 18 06/26/17 02:00 125/82 (96) 06/26/17 01:55 94 06/26/17 01:46 125/74 (91) 06/26/17 01:40 93 06/26/17 01:31 92 130/75 (93) 06/26/17 01:30 18 06/26/17 01:25 92 06/26/17 01:15 134/77 (96) 06/26/17 01:10 99 06/26/17 01:01 121/71 (88) 06/26/17 01:00 18 06/26/17 00:58 97.9 06/26/17 00:55 101 06/26/17 00:50 102 06/26/17 00:45 132/75 (94) Objective 8-0/80/-2 with forewaters AROM ? meconium not well applied EFW 7 pounds proven to 7 pounds strip reactive UCs intermittent Weeks Gestation: 38 Gest Age Assessed Date: Jun 26, 2017 Gest Age Assessed Time: 08:44 Pt started active labor?: Yes Active labor start date: Jun 25, 2017 Artificial rupture of membrane: Yes Artificial ROM date: Jun 26, 2017 Artifical ROM time: 08:45 Assessment/Plan Assessment and Plan forewaters vs intake bag identified and ruptured needs to descend place upright and augment anticipate begin ancef in case she was prolonged rupture Stephanie Duff MD Jun 26, 2017 08:46
[2017-06-26] MEDS: FLUoxetine HCL 20 MG CAP PO SCH (09:14)
[2017-06-26] MEDS: ceFAZolin 500 MG/NS 100 ML IV SCH ×2 (10:09)
[2017-06-26] MEDS ORDERED: BUPIVACAINE HCL PF 0.25% 10 ML VIAL ONE (10:47)
[2017-06-26] MEDS ORDERED: LIDOCAINE 2%/EPINEPHrine PF 1:200,000 20ML SDV ONE (10:47)
--- NOTE | 2017-06-26 11:51 | PD.OB.DELI ---
Weeks gestation: 38 Gest age assessed date: Jun 26, 2017 Gest age assessed time: 08:44 Pt started active labor?: Yes Active labor start date: Jun 25, 2017 Artificial rupture of membrane: Yes Artificial ROM date: Jun 26, 2017 Artifical ROM time: 08:45 Anesthesia: Epidural Episiotomy: None Vaginal Delivery: Normal Presentation: Occiput anterior Nuchal Cord: Other (short cord) Delayed cord clamping (45 sec): Yes Infant: Male Delivery date: Jun 26, 2017 Delivery time: 11:51 One Minute : 8 Five Minute : 9 Weight: 8 Placenta: Spontaneous delivery Estimated blood loss: 300 Additional Information perineal rash only Stephanie Duff MD Jun 26, 2017 11:51
--- NOTE | 2017-06-26 11:54 | HHI.DCPOC ---
Discharge Care Plan Report Symptoms to Your Doctor -Temperature above 100.5 degrees -Redness, of incision or excessive or foul smelling drainage -Unusual pain or calf pain -Increased vaginal bleeding -Painful or difficulty urinating -Feelings of extreme sadness or anxiety after 2 weeks Goals to Promote Your Health * To prevent worsening of your condition and complications * To maintain your health at the optimal level Directions to Meet Your Goals Take your medications as prescribed Follow your dietary instruction Follow activity as directed Ensure plenty of rest for recovery Drink fluids for hydration Keep your appointments as scheduled Take your immunizations and boosters as scheduled If your symptoms worsen call your PCP, if no PCP go to Urgent Care Center or Emergency Room Smoking is Dangerous to Your Health. Avoid second hand smoke Call the 24-hour crisis hotline for domestic abuse at Stephanie Duff MD Jun 26, 2017 11:54
[2017-06-26] MEDS ORDERED: ZOLPIDEM TARTRATE 5 MG TAB PO PRN (12:00)
[2017-06-26] MEDS ORDERED: DOCUSATE SODIUM 50 MG/SENNA 8.6 MG TAB PO PRN (12:00)
[2017-06-26] MEDS ORDERED: WITCH HAZEL 50%/GLYCERIN 12.5% 40 PAD JAR TOPICAL PRN (12:00)
[2017-06-26] MEDS ORDERED: ONDANSETRON ODT 4 MG TAB PO PRN (12:00)
[2017-06-26] MEDS ORDERED: ALUMINUM/MAGNESIUM/SIMETH 30 ML CUP PO PRN (12:00)
[2017-06-26] MEDS ORDERED: SODIUM CHLORIDE 0.9% FLUSH 10 ML FLUSH IV FLUSH PRN (12:00)
[2017-06-26] MEDS ORDERED: BENZOCAINE 20% TOPICAL SPRAY 60 ML CAN TOPICAL PRN (12:00)
[2017-06-26] MEDS ORDERED: MEASLES, MUMPS, RUBELLA VACCINE 0.5 ML VIAL SQ ONE (16:00)
[2017-06-26] MEDS ORDERED: DIPHTH/TETANUS/ACEL PERTUSSIS (BOOSTER) 0.5 ML VIAL/PFS IM ONE (16:00)
[2017-06-26] MEDS: IBUPROFEN 800 MG TAB PO PRN (19:49)
[2017-06-26] MEDS: ACETAMINOPHEN 325 MG TAB PO PRN (19:49)
[2017-06-26] MEDS ORDERED: SODIUM CHLORIDE 0.9% FLUSH 10 ML FLUSH IV FLUSH SCH (21:00)
[2017-06-27] MEDS: ceFAZolin 500 MG/NS 100 ML IV SCH ×4 (02:00→08:47)
[2017-06-27] MEDS: ACETAMINOPHEN 325 MG TAB PO PRN (06:27)
[2017-06-27] MEDS: IBUPROFEN 800 MG TAB PO PRN ×2 (06:27→21:11)
[2017-06-27 07:42] VITALS: BP 118/76; PULSE 79; RESP 18; TEMP 97.7
[2017-06-27] MEDS: LACTATED RINGER'S 1000 ML INJ 1,000 ML IV SCH ×2 (08:04→22:50)
[2017-06-27] MEDS: FLUoxetine HCL 20 MG CAP PO SCH (09:15)
--- NOTE | 2017-06-27 10:31 | HHI.OB ---
Subjective Post Day: 1 Remarks Doing well desires circ and wants to avoid doing in office will pay in am at office no complaints Objective Vitals/I&O Vital Signs Date Time Temp Pulse Resp B/P (MAP) Pulse Ox O2 Delivery O2 Flow Rate FiO2 06/27/17 07:42 97.7 79 18 06/27/17 07:42 118/76 (90) 06/26/17 20:00 97 20 132/71 (91) 06/26/17 20:00 97.5 98 06/26/17 14:00 101 18 127/72 (90) 06/26/17 14:00 97.6 100 06/26/17 13:27 18 06/26/17 13:00 98 118/71 (87) 06/26/17 12:45 18 06/26/17 12:45 103 132/76 (94) 06/26/17 12:31 120/89 (99) 06/26/17 12:30 18 06/26/17 12:16 142 122/56 (78) 06/26/17 12:15 98.2 18 06/26/17 12:01 105 127/58 (81) 06/26/17 11:57 119 129/70 (89) 06/26/17 11:56 18 06/26/17 11:45 150 06/26/17 11:40 109 06/26/17 11:35 114 06/26/17 11:30 97 06/26/17 11:25 96 06/26/17 11:20 96 06/26/17 11:15 100 06/26/17 11:14 96 117/61 (79) 06/26/17 11:10 100 06/26/17 11:05 99 06/26/17 11:00 98 06/26/17 10:55 103 06/26/17 10:50 99 06/26/17 10:45 99 06/26/17 10:40 98 06/26/17 10:36 18 06/26/17 10:35 105 06/26/17 10:35 101 116/69 (85) Objective Remarks GENERAL: Well-nourished, well-developed patient. CARDIOVASCULAR: Regular rate and rhythm without murmurs, gallops, or rubs. RESPIRATORY: Breath sounds equal bilaterally. No accessory muscle use. ABDOMEN/GI: Abdomen soft, non-tender. Fundus: Firm, non-tender at umbilicus. GENITOURINARY: Light to moderate bleeding. EXTREMITIES: No cyanosis or edema, non-tender, without signs of DVT. Medications and IVs Current Medications Medications (Trade) Dose Ordered Sig/Caprice Route Start Time Stop Time Status Last Admin Lactated Ringer's 1,000 ml @ 125 mls/hr Q8H IV 06/25/17 21:00 06/25/17 23:42 Lactated Ringer's 1,000 ml @ 3,000 mls/hr Q20M PRN IV 06/25/17 20:37 Sodium Chloride 1,000 ml @ 100 mls/hr Q10H PRN IV 06/25/17 20:57 (Xylocaine 1% Inj (50 ml)) 0.1 ml UNSCH X1 PRN I-DERMAL 06/25/17 20:45 06/28/17 20:44 (Bicitra Liq) 30 ml TREE TOPPER PO 06/25/17 20:45 06/29/17 20:44 (fentaNYL INJ) 50 mcg Q1H PRN IV PUSH 06/25/17 20:45 (fentaNYL INJ) 100 mcg Q1H PRN IV PUSH 06/25/17 20:45 (Xylocaine 1% Inj (50 ml)) 10 ml UNSCH X1 PRN INFIL 06/25/17 20:45 06/27/17 20:44 (Muri-Lube Oil) 10 ml UNSCH PRN TOPICAL 06/25/17 20:45 (PROzac) 20 mg DAILY PO 06/26/17 09:00 06/27/17 09:15 Fentanyl/ Bupivacaine HCl 100 ml @ 0 mls/hr TITRATE EPIDURAL 06/25/17 23:30 Oxytocin 500 ml @ 0 mls/hr TITRATE IV 06/26/17 08:45 06/26/17 09:16 (NS Flush) 2 ml BID IV FLUSH 06/26/17 21:00 (NS Flush) 2 ml UNSCH PRN IV FLUSH 06/26/17 12:00 (Tylenol) 650 mg Q4H PRN PO 06/26/17 12:00 06/27/17 06:27 (Motrin) 800 mg Q8H PRN PO 06/26/17 12:00 06/27/17 06:27 (Americaine 20% Top Spr) 1 spray Q4H PRN TOPICAL 06/26/17 12:00 (Tucks Pads) 1 applic QID PRN TOPICAL 06/26/17 12:00 (Luisa-Colace) 2 tab Q12H PRN PO 06/26/17 12:00 (Ambien) 5 mg HS PRN PO 06/26/17 12:00 (Mag-Al Plus Susp Liq) 15 ml Q8H PRN PO 06/26/17 12:00 (Zofran Odt) 4 mg Q6H PRN PO 06/26/17 12:00 Assessment/Plan Assessment and Plan PPD1 with circ today and will pay in am Home tomorrow Stephanie Duff MD Jun 27, 2017 10:31
[2017-06-27 19:35] VITALS: BP 137/83; PULSE 78; RESP 16; TEMP 97.8
[2017-06-28] MEDS: LACTATED RINGER'S 1000 ML INJ 1,000 ML IV SCH (05:00)
--- NOTE | 2017-06-28 08:24 | HHI.OB ---
Subjective Post Day: 2 Remarks POD#2, doing well, cleared for discharge Objective Vitals/I&O Vital Signs Date Time Temp Pulse Resp B/P (MAP) Pulse Ox O2 Delivery O2 Flow Rate FiO2 06/27/17 19:35 97.8 78 16 137/83 (101) Objective Remarks GENERAL: Well-nourished, well-developed patient. CARDIOVASCULAR: Regular rate and rhythm without murmurs, gallops, or rubs. RESPIRATORY: Breath sounds equal bilaterally. No accessory muscle use. ABDOMEN/GI: Abdomen soft, non-tender. Fundus: Firm, non-tender at umbilicus. GENITOURINARY: Light to moderate bleeding. EXTREMITIES: No cyanosis or edema, non-tender, without signs of DVT. Medications and IVs Current Medications Medications (Trade) Dose Ordered Sig/Caprice Route Start Time Stop Time Status Last Admin Lactated Ringer's 1,000 ml @ 125 mls/hr Q8H IV 06/25/17 21:00 06/25/17 23:42 Lactated Ringer's 1,000 ml @ 3,000 mls/hr Q20M PRN IV 06/25/17 20:37 Sodium Chloride 1,000 ml @ 100 mls/hr Q10H PRN IV 06/25/17 20:57 (Xylocaine 1% Inj (50 ml)) 0.1 ml UNSCH X1 PRN I-DERMAL 06/25/17 20:45 06/28/17 20:44 (Bicitra Liq) 30 ml [employer] PO 06/25/17 20:45 06/29/17 20:44 (fentaNYL INJ) 50 mcg Q1H PRN IV PUSH 06/25/17 20:45 (fentaNYL INJ) 100 mcg Q1H PRN IV PUSH 06/25/17 20:45 (Muri-Lube Oil) 10 ml UNSCH PRN TOPICAL 06/25/17 20:45 (PROzac) 20 mg DAILY PO 06/26/17 09:00 06/27/17 09:15 Fentanyl/ Bupivacaine HCl 100 ml @ 0 mls/hr TITRATE EPIDURAL 06/25/17 23:30 Oxytocin 500 ml @ 0 mls/hr TITRATE IV 06/26/17 08:45 06/26/17 09:16 (NS Flush) 2 ml BID IV FLUSH 06/26/17 21:00 (NS Flush) 2 ml UNSCH PRN IV FLUSH 06/26/17 12:00 (Tylenol) 650 mg Q4H PRN PO 06/26/17 12:00 06/27/17 06:27 (Motrin) 800 mg Q8H PRN PO 06/26/17 12:00 06/27/17 21:11 (Americaine 20% Top Spr) 1 spray Q4H PRN TOPICAL 06/26/17 12:00 06/27/17 21:11 (Tucks Pads) 1 applic QID PRN TOPICAL 06/26/17 12:00 06/27/17 21:11 (Luisa-Colace) 2 tab Q12H PRN PO 06/26/17 12:00 (Ambien) 5 mg HS PRN PO 06/26/17 12:00 (Mag-Al Plus Susp Liq) 15 ml Q8H PRN PO 06/26/17 12:00 (Zofran Odt) 4 mg Q6H PRN PO 06/26/17 12:00 Assessment/Plan Assessment and Plan PPD2; Stable for Discharge, RTO @ 2 weeks Attending Attestation seen by Rob Crenshaw MD Jun 28, 2017 08:24
[2017-06-28 08:35] VITALS: BP 139/88; PULSE 86; RESP 16; TEMP 98.6
[2017-06-28] MEDS: FLUoxetine HCL 20 MG CAP PO SCH (09:34)
== END 2017-06-28 09:45 | disposition home or self-care (01) | DRG 774 ==
LOC: HOBED 19:19 → H2EB 20:35 → H1EA 06-26 13:46
PROVIDERS: ADMIT Obstetrics & Gynecology; ATTEND Obstetrics & Gynecology
PROC: 10E0XZZ Delivery of Products of Conception, External Approach (ICD-10-PCS; principal; 2017-06-26)
PROC: 10907ZC Drainage of Amniotic Fluid, Therapeutic from Products of Conception, Via Natural or Artificial Opening (ICD-10-PCS; 2017-06-26)
DX: O42.92 Full-term premature rupture of membranes, unspecified as to length of time between rupture and onset of labor (principal); O98.32 Other infections with a predominantly sexual mode of transmission complicating childbirth; O69.3XX0 Labor and delivery complicated by short cord, not applicable or unspecified; A60.00 Herpesviral infection of urogenital system, unspecified; F32.9 Major depressive disorder, single episode, unspecified; F41.9 Anxiety disorder, unspecified; O99.344 Other mental disorders complicating childbirth; Z3A.38 38 weeks gestation of pregnancy; Z37.0 Single live birth; Z86.14 Personal history of Methicillin resistant Staphylococcus aureus infection
CPT/HCPCS: 80307; 81001; 84112; 85025; 86900; 86901; 87086; 87640; 87641; J0690; J2590; J3010; J7120